=== PATIENT | male | born 1995 | race American Indian/Alaskan Native ===

== ENCOUNTER 2019-09-12 10:47 | Emergency (ER) | payer SELFPAY ==
--- NOTE | 2019-09-12 11:17 | Event Note ---
ED Screening Note Date of service: 09/12/19 ED Screening Note: This initial assessment/diagnostic orders/clinical plan/treatment(s) is/are subject to change based on patients health status, clinical progression and re- assessment by fellow clinical providers in the ED. Further treatment and workup at subsequent clinical providers discretion. Patient/guardian urged not to elope from the ED as their condition may be serious if not clinically assessed and managed. Initial orders include:
--- NOTE | 2019-09-12 12:20 | XRay Report ---
RIGHT ANKLE 3 VIEWS INDICATION / CLINICAL INFORMATION: Right ankle injury while playing basketball with subsequent pain and swelling. COMPARISON: None available. FINDINGS: BONES and JOINT(S): No acute fracture or subluxation. No significant arthritis. SOFT TISSUES: No significant abnormality. ADDITIONAL FINDINGS: None. IMPRESSION: No significant abnormality of the right ankle. Signer Name: Dennis Shane MD Signed: 09/12/2019 12:15 PM Workstation Name: [id number]
--- NOTE | 2019-09-12 14:22 | Emergency Department Report ---
ED Lower Extremity HPI - General Chief Complaint: Extremity Injury, Lower Stated Complaint: SPRAINED RT ANKLE Time Seen by Provider: 09/12/19 13:51 Source: patient Mode of arrival: Ambulatory Limitations: No Limitations - History of Present Illness Initial Comments: pt is a 23 yo male who presents to the ED with c/o right ankle injury that occurred yesterday. he states that he was playing basketball and was running and got pulled the other direction. he states that then someone collided into him and landed directly onto his ankle. he states he has been ambulatory with a limp and has pain with bearing weight. he has associated edema of the ankle. he denies any numbness or weakness. he states he has had an ankle sprain in the past. he denies any PMHx or allergies to meds. - Related Data Previous Rx's Medication Instructions Recorded Last Taken Type Naproxen [EC-Naproxen] 500 mg PO BID PRN #14 tablet. 09/12/19 Unknown Rx Allergies Allergy/AdvReac Type Severity Reaction Status Date / Time No Known Allergies Allergy Unverified 09/12/19 11:16 ED Review of Systems ROS: Stated complaint: SPRAINED RT ANKLE Other details as noted in HPI Comment: All other systems reviewed and negative ED Past Medical Hx - Past Medical History Previous Medical History?: No - Surgical History Past Surgical History?: No - Social History Smoking Status: Never Smoker Substance Use Type: Alcohol, Marijuana - Medications Home Medications: Home Medications Medication Instructions Recorded Confirmed Last Taken Type Naproxen [EC-Naproxen] 500 mg PO BID PRN #14 tablet. 09/12/19 Unknown Rx ED Physical Exam - General Limitations: No Limitations General appearance: alert, in no apparent distress - Head Head exam: Present: atraumatic, normocephalic - Eye Eye exam: Present: normal appearance - ENT ENT exam: Present: mucous membranes moist - Extremities Exam Extremities exam: Present: other (TTP over the right lateral malleolus with a ssociated localized edema, FROM of the right ankle with pain upon flexion and internal rotation, neurovascularly intact, no obvious deformity) - Neurological Exam Neurological exam: Present: alert, oriented X3 - Psychiatric Psychiatric exam: Present: normal affect, normal mood - Skin Skin exam: Present: warm, dry, intact, normal color. Absent: rash ED Course Vital Signs 02/03/20 11:14 Temperature 98.6 F Pulse Rate 62 Respiratory 18 Rate Blood Pressure 134/70 O2 Sat by Pulse 97 Oximetry ED Lower Extremity MDM - Radiology Data Radiology results: report reviewed RIGHT ANKLE 3 VIEWS INDICATION / CLINICAL INFORMATION: Right ankle injury while playing basketball with subsequent pain and swelling. COMPARISON: None available. FINDINGS: BONES and JOINT(S): No acute fracture or subluxation. No significant arthritis. SOFT TISSUES: No significant abnormality. ADDITIONAL FINDINGS: None. IMPRESSION: No significant abnormality of the right ankle. Signer Name: Dennis Shane MD Signed: 09/12/2019 12:15 PM Workstation Name: [id number] Transcribed By: JOSE Dictated By: Dennis Shane MD Electronically Authenticated By: Dennis Shane MD Signed Date/Time: 09/12/191214 DD/ 14 TD/TT: - Medical Decision Making pt is a 23 yo male who presents to the ED with c/o right ankle injury that occurred yesterday. he states that he was playing basketball and was running and got pulled the other direction. he states that then someone collided into him and landed directly onto his ankle. he states he has been ambulatory with a limp and has pain with bearing weight. he has associated edema of the ankle. he denies any numbness or weakness. he states he has had an ankle sprain in the past. he denies any PMHx or allergies to meds. vitals are normal. on exam: TTP over the right lateral malleolus with associated localized edema, FROM of the right ankle with pain upon flexion and internal rotation, neurovascularly intact, no obvious deformity. XR right ankle: No significant abnormality of the right ankle. examination consistent with ankle sprain. pt placed in ankle stirrup splint and given crutches and remained neurovascularly intact. pt given prescription for naproxen. advised pt to please take medication as prescribed as needed. may use ice for 15 minutes at a time, rest, elevation of the leg. follow up with an orthopedic doctor in the next 2-3 days. do not bear weight on the leg until cleared by an orthopedic doctor. return to the emergency room for any new or worsening symptoms. - Differential Diagnosis strain, sprain, fx, dislocation Critical care attestation.: If time is entered above; I have spent that time in minutes in the direct care of this critically ill patient, excluding procedure time. ED Disposition Clinical Impression: Right ankle sprain Qualifiers: Encounter type: initial encounter Involved ligament of ankle: unspecified ligament Qualified Code(s): S93.401A - Sprain of unspecified ligament of right ankle, initial encounter Disposition: TO HOME OR SELFCARE Is pt being admited?: No Does the pt Need Aspirin: No Condition: Stable Instructions: Ankle Sprain (ED), Ankle Stirrup Splint (ED) Additional Instructions: please take medication as prescribed as needed. may use ice for 15 minutes at a time, rest, elevation of the leg. follow up with an orthopedic doctor in the next 2-3 days. do not bear weight on the leg until cleared by an orthopedic doctor. return to the emergency room for any new or worsening symptoms. Prescriptions: Naproxen [EC-Naproxen] 500 mg PO BID PRN #14 tablet.dr GONZALES Reason: pain Referrals: GONSALO STEVENS MD [Staff Physician] - 2-3 Days [facility] [Provider Group] - 2-3 Days Time of Disposition: 14:23 Print Language: GUYANESE
[2019-09-12 15:24] VITALS: BP 119/76
== END 2019-09-12 15:18 | disposition home or self-care (01) ==
LOC: ED 10:47
DX: S93.401A Sprain of unspecified ligament of right ankle, initial encounter (principal); F12.10 Cannabis abuse, uncomplicated; X58.XXXA Exposure to other specified factors, initial encounter; Y93.67 Activity, basketball; Y92.89 Other specified places as the place of occurrence of the external cause; Y99.8 Other external cause status